=== PATIENT | male | born 1965 | race Caucasian/White ===

== ENCOUNTER 2018-09-07 17:53 | Emergency (ER) | payer OTHER ==
[2018-09-07 18:16] VITALS: BP 155/107
--- NOTE | 2018-09-07 18:53 | UC ---
Abdominal Pain Male HPI - HPI Summary HPI Summary: Patient presents to urgent care stating he's had intermittent abdominal pain for 2 years. Patient states he's been through upper endoscopy and treated for he'll doctor with improvement of symptoms. Patient states last he developed lower abdominal pain. Patient states he's had intermittent pain at times sharp since this time. Patient states he's also had intervals were he's been pain-free. Patient states Wednesday night he drank wine in the seemed to exacerbate his symptoms. Patient states Wednesday he felt bad all day long. Patient states Wednesday was better but still had some discomfort in the evening. Today he ate Charles or BBQ that seemed to make the pain increased. Patient states she's been belching a lot. Patient denies any pain when his rectum or pain with bowel movements. No blood or black stool. No pain in his penis or testicles. No dysuria. Patient denies tenesmus. Patient denies any abdominal trauma. Patient states he's been tolerating Internet he's concerned he may have diverticulitis or colon cancer. Patient has not had a colonoscopy. Patient states she's never had a CAT scan. Patient states he did not call his doctor but he didn't want to go through another night of not feeling also he came here. Patient's medications reviewed this visit. Patient does take ranitidine as well as omeprazole for his abdomen symptoms. no known food allergies. - History of Current Complaint Chief Complaint: UCAbdominalPain Stated Complaint: ABDOMINAL PAIN Time Seen by Provider: 09/07/18 18:43 Hx Obtained From: Patient, Medical Records Onset/Duration: Gradual Onset Severity Initially: Mild Severity Currently: Mild Pain Intensity: 2 Pain Scale Used: 0-10 Numeric Location: Discrete At: LUQ, Discrete At: LLQ - Allergies/Home Medications Allergies/Adverse Reactions: Allergies Allergy/AdvReac Type Severity Reaction Status Date / Time banana Allergy Unknown Verified 09/07/18 18:17 Reaction Details eggplant Allergy Unknown Uncoded 06/10/17 13:32 Reaction Details Home Medications: Home Medications Enzymes,Digestive [Enzymatic Digestant] 1 tab PO DAILY 09/07/18 [History Confirmed 09/07/18] Ranitidine TAB (NF) [Zantac TAB (NF)] 150 mg PO BID 09/07/18 [History Confirmed 09/07/18] PMH/Surg Hx/FS Hx/Imm Hx Previously Healthy: Yes - Surgical History Surgical History: Yes Surgery Procedure, Year, and Place: ORAL SURGERY - Family History Known Family History: Positive: Non-Contributory - Social History Occupation: Employed Full-time - [employer] Lives: With Family Alcohol Use: Daily Alcohol Amount: a couple of glasses with dinner Substance Use Type: None Smoking Status (MU): Never Smoked Tobacco Review of Systems All Other Systems Reviewed And Are Negative: Yes Constitutional: Positive: Negative Skin: Positive: Negative Eyes: Positive: Negative ENT: Positive: Negative Respiratory: Positive: Negative Gastrointestinal: Positive: Abdominal Pain. Negative: Vomiting, Diarrhea, Nausea Genitourinary: Positive: Negative Motor: Positive: Negative Physical Exam - Summary Physical Exam Summary: Vital Signs Reviewed: Yes A+Ox3, no distress Eyes: Conjunctiva Clear, NIKOLAS. EOM intact and full ENT: Hearing grossly normal TM x 2 clear, mmoist, uvula midline, no exudate, no erythema Neck: Positive: Supple Respiratory: Positive: No respiratory distress, No accessory muscle use + CTA throughout no w/r Cardiovascular: RRR nl s1, s2 no m/r CBT <2 sec abd soft + BS + TTP very mild LLQ no guarding, no rebound, neg rosving's Musculoskeletal Exam: PEÑA x 4 without difficulty Strength Intact, ROM Intact Neurological: Positive: Alert, + sensation throughout Psychological: Positive: Normal Response To Family Skin: Positive: no rash, no ecchymosis Vital Signs: Initial Vital Signs Temp 100.1 F 09/07/18 18:09 Pulse 69 09/07/18 18:09 Resp 16 09/07/18 18:09 BP 155/107 09/07/18 18:09 Pulse Ox 100 09/07/18 18:09 Re-Evaluation - Re-Evaluation First Eval Re-Evaluation Time: 20:04 Comment: recheck temp wnl. pt's urine neg. I had a very long discussioin with pt - pt does not want to go to the emergency department tonight. After much discussion - will draw labs at . Pt will go home - bland diet. will contact PCP in am for reassessment. I fpain worsens,,fevers, chills, blood stool or ANY Other concerns will go immediatey to the emergency department Abd Pain Male Course/Dx - Course Course Of Treatment: Patient presents with intermittent progressive abdominal pain since last . Patient states pain is like a heavy pressure and at times sharp. No changes with bowel movement. Patient with mild nausea no vomiting. Patient with a low-grade temperature here. Patient has never had a colonoscopy or CT scan to evaluate for diverticulosis. Patient is on medication for GERD. On exam patient noted to have a low-grade temp. Patient with tenderness left lower quadrant mild. Discussed with patient at length. Urinalysis is nondiagnostic. Likely recommend patient to emergency department for further evaluation and treatment tonight. Patient aware that care will be directed by the provider that sees him in the emergency department. Patient is scheduled to go out of town in approximately 10 days recommended evaluated Pt's BP elevated - recommend f/u with PCP - related to today's condition - Differential Dx/Clinical Impression Provider Diagnosis: Abdominal pain Discharge - Sign-Out/Discharge Documenting (check all that apply): Patient Departure All imaging exams completed and their final reports reviewed: No - Discharge Plan Condition: Stable Disposition: HOME Patient Education Materials: Abdominal Pain (ED) Referrals: Luca Kellogg MD [Primary Care Provider] - Additional Instructions: As discussed at [facility] visit: - you had lab tests drawn today - these results will come back tomorrow midday - your doctor will have access to the results. You will receive a call from a care team provider if there are any concerning lab studies - eat a bland diet [facility] - dry toast, scrambled eggs, broth - avoid spicy foods, acidic foods, fried foods - Contact your doctor tomorrow morning to schedule a follow-up appointment this week If you have increased pain, vomiting, fever, chills, blood in your stools go directly to the emergency department for further evaluation and treatment - Billing Disposition and Condition Condition: STABLE Disposition: Home
--- NOTE | 2018-09-08 08:23 | UC ---
Course/Dx - Diagnoses Provider Diagnoses: Abdominal pain Discharge - Sign-Out/Discharge Documenting (check all that apply): Post-Discharge Follow Up All imaging exams completed and their final reports reviewed: No Studies - Discharge Plan Condition: Stable Disposition: HOME Patient Education Materials: Abdominal Pain (ED) Referrals: Luca Kellogg MD [Primary Care Provider] - Additional Instructions: As discussed at tonight's visit: - you had lab tests drawn today - these results will come back tomorrow midday - your doctor will have access to the results. You will receive a call from a care team provider if there are any concerning lab studies - eat a bland diet [facility] - dry toast, scrambled eggs, broth - avoid spicy foods, acidic foods, fried foods - Contact your doctor tomorrow morning to schedule a follow-up appointment this week If you have increased pain, vomiting, fever, chills, blood in your stools go directly to the emergency department for further evaluation and treatment - Billing Disposition and Condition Condition: STABLE Disposition: Home
[2018-09-08 11:57] LABS: ABS Eosinophils 0.1 10^3/ul (0-0.6); ABS Monocytes 0.6 10^3/ul (0-0.8); ABS Neutrophils 3.1 10^3/ul (1.5-7.7); Eosinophil % 1.5 %; Hematocrit 42 % (42-52); Lymphocyte % 35.1 %; Mean Corpuscular HGB Conc 34 g/dL (31-36); Mean Corpuscular Hemoglobin 29 pg (27-31); Mean Corpuscular Volume 87 fL (80-94); Mean Platelet Volume 8.3 fL (7.4-10.4); Platelet Count 218 10^3/uL (150-450); Red Blood Count 4.79 10^6 /uL (4.18-5.48); Red Cell Distribution Width 15 % (10.5-15); White Blood Count 5.8 10^3/uL (3.5-10.8)
[2018-09-08 13:58] LABS: Albumin 4.5 g/dL (3.2-5.2); BUN/Creatinine Ratio 16.8 (8-20); C Reactive Protein 4.5 mg/L (<8.01); Calcium 9.4 mg/dL (8.6-10.3); EGFR African American 93.1 (>60); Globulin 2.3 g/dL (2-4); Magnesium 2.2 mg/dL (1.9-2.7); Potassium 4.1 mmol/L (3.5-5.0); Total Bilirubin 0.5 mg/dL (0.2-1.0); Total Protein 6.8 g/dL (6.4-8.9)
== END 2018-09-07 20:25 | disposition home or self-care (01) ==
LOC: UCEAST 17:53
DX: R10.32 Left lower quadrant pain (principal); R10.12 Left upper quadrant pain; R11.0 Nausea; R50.9 Fever, unspecified; K21.9 Gastro-esophageal reflux disease without esophagitis; Z91.018 Allergy to other foods
CPT/HCPCS: 36415; 80053; 81003; 83735; 85025; 86140; 99211; G0463

== ENCOUNTER 2019-01-07 14:01 | Inpatient (IN) | payer OTHER ==
[2019-01-07 14:25] LABS: ABS Lymphocytes 1.4 10^3/ul (1.0-4.8); ABS Monocytes 0.4 10^3/ul (0-0.8); ABS Neutrophils 5.4 10^3/ul (1.5-7.7); Eosinophil % 0.3 %; Hematocrit 42 % (42-52); Hemoglobin 14.2 g/dL (14.0-18.0); Lymphocyte % 19.1 %; Mean Corpuscular HGB Conc 34 g/dL (31-36); Mean Corpuscular Hemoglobin 29 pg (27-31); Mean Corpuscular Volume 86 fL (80-94); Mean Platelet Volume 6.9 fL (7.4-10.4); Platelet Count 245 10^3/uL (150-450); Red Blood Count 4.84 10^6 /uL (4.18-5.48); Red Cell Distribution Width 14 % (10-15); White Blood Count 7.2 10^3/uL (3.5-10.8)
[2019-01-07 14:31] LABS: INR 0.91 (0.82-1.09)
--- NOTE | 2019-01-07 14:37 | ED ---
HPI Chest Pain - HPI Summary HPI Summary: This patient is a 53 year old M presenting to ED with a chief complaint of intermittent chest pain since 12/26/18. Patient was in [facility], [facility], and [facility] for a month. He flew 27 hours. 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 Patient now reports difficulty cycling with CP radiating to the left arm, jaw, and neck. Patient states he only cycled 50 miles today. He said it was more challenging than usual. Patient states he has never felt anything like this before. Patient denies a history of DVT/PE. FHx of coronary thrombosis. Her grandmother from coronary thrombosis when she was 55 years old. Patient drinks alcohol, about half a bottle of wine a day. He does not smoke cigarettes. Patient denies hx of DM, HTN. Patient has not had a stress done before. The patient rates the pain 2/10 in severity. Symptoms aggravated by exercising. Symptoms alleviated by nothing. Patient states he does not want to be admitted to the hospital. Patient denies fever, SOB. - History of Current Complaint Chief Complaint: EDChestPainROMI Time Seen by Provider: 01/07/19 14:27 Hx Obtained From: Patient Onset/Duration: Started Weeks Ago - Since 12/26/18, Still Present Timing: Intermittent Initial Severity: Mild Current Severity: Mild Pain Intensity: 2 Pain Scale Used: 0-10 Numeric Chest Pain Location: Left Anterior Chest Pain Radiates: Yes Chest Pain Radiates To:: Arm - Left, Jaw, Neck Character: Exertion Aggravating Factor(s): Exertion Alleviating Factor(s): Nothing Associated Signs and Symptoms: Positive: Chest Pain. Negative: Fever - Allergy/Home Medications Allergies/Adverse Reactions: Allergies Allergy/AdvReac Type Severity Reaction Status Date / Time banana Allergy Unknown Verified 09/07/18 18:17 Reaction Details eggplant Allergy Unknown Uncoded 06/10/17 13:32 Reaction Details PMH/Surg Hx/FS Hx/Imm Hx Endocrine/Hematology History: Denies: Hx Diabetes Cardiovascular History: Denies: Hx Hypertension, Hx Pacemaker/ICD Respiratory History: Denies: Hx Asthma Sensory History: Denies: Hx Hearing Aid Psychiatric History: Denies: Hx Panic Disorder - Surgical History Surgery Procedure, Year, and Place: ORAL SURGERY Infectious Disease History: No Infectious Disease History: Reports: Traveled Outside the [place] in Last 30 Days - Family History Known Family History: Positive: Cardiac Disease - Coronary thrombosis in grandmother when she was 55 - Social History Alcohol Use: Daily Alcohol Amount: a couple of glasses with dinner Hx Substance Use: No Substance Use Type: Reports: None Hx Tobacco Use: No Smoking Status (MU): Never Smoked Tobacco Review of Systems Negative: Fever Positive: Chest Pain Negative: Shortness Of Breath All Other Systems Reviewed And Are Negative: Yes Physical Exam - Summary Physical Exam Summary: GENERAL: Patient is a well-developed and nourished M who is lying comfortable in the stretcher. Patient is not in any acute respiratory distress. HEAD AND FACE: Normocephalic EYES: PERRLA, EOMI x 2. EARS: Hearing grossly intact. MOUTH: Oropharynx within normal limits. NECK: Supple, trachea is midline, no adenopathy, no JVD, no carotid bruit. CHEST: Symmetric, no tenderness at palpation LUNGS: Clear to auscultation bilaterally. No wheezing or crackles. CVS: Regular rate and rhythm, S1 and S2 present, no murmurs or gallops appreciated. ABDOMEN: Soft, non-tender. Bowel sounds are normal. No abnormal abdominal pulsations. EXTREMITIES: Full ROM in all major joints, no edema, no cyanosis or clubbing. NEURO: Alert and oriented x 3. No acute neurological deficits. Speech is normal and follows commands. SKIN: Dry and warm Triage Information Reviewed: Yes Vital Signs On Initial Exam: Initial Vitals Temp Pulse Resp BP Pulse Ox 98.1 F 87 16 148/86 98 01/07/19 14:03 01/07/19 14:03 01/07/19 14:03 01/07/19 14:03 01/07/19 14:03 Vital Signs Reviewed: Yes Diagnostics - Vital Signs Vital Signs Temp Pulse Resp BP Pulse Ox 01/07/19 14:03 98.1 F 87 16 148/86 98 - Laboratory Lab Results: Lab Results 01/07/19 01/07/19 Range/Units 14:01 14:01 WBC 7.2 (3.5-10.8) 10^3/uL RBC 4.84 (4.18-5.48) 10^6 /uL Hgb 14.2 (14.0-18.0) g/dL Hct 42 (42-52) % MCV 86 (80-94) fL MCH 29 (27-31) pg MCHC 34 (31-36) g/dL RDW 14 (10-15) % Plt Count 245 (150-450) 10^3/uL MPV 6.9 L (7.4-10.4) fL Neut % (Auto) 73.9 % Lymph % (Auto) 19.1 % [place] % (Auto) 6.0 % Eos % (Auto) 0.3 % Baso % (Auto) 0.7 % Absolute Neuts (auto) 5.4 (1.5-7.7) 10^3/ul Absolute Lymphs (auto) 1.4 (1.0-4.8) 10^3/ul Absolute Monos (auto) 0.4 (0-0.8) 10^3/ul Absolute Eos (auto) 0.0 (0-0.6) 10^3/ul Absolute Basos (auto) 0.0 (0-0.2) 10^3/ul Absolute Nucleated RBC 0.0 10^3/ul Nucleated RBC % 0.0 INR (Anticoag Therapy) 0.91 (0.82-1.09) Result Diagrams: 01/07/19 14:01 01/07/19 14:01 Lab Statement: Any lab studies that have been ordered have been reviewed, and results considered in the medical decision making process. - Radiology CXR Radiology Interpretation Completed By: Radiologist Summary of Radiographic Findings: #. No evidence for acute intrathoracic disease. Dr. Walsh has reviewed this radiology report. - EKG 1402 Cardiac Rate: NL - 97 BPM EKG Rhythm: Sinus Rhythm Summary of EKG Findings: NSR at 97 BPM, LVH with ST-T wave changes. 1453 Cardiac Rate: NL - 89 BPM EKG Rhythm: Sinus Rhythm Summary of EKG Findings: NSR at 89 BPM, LVH. Re-Evaluation - Re-Evaluation Second Eval Re-Evaluation Time: 16:48 Comment: Discussed results with patient. Patient restates that he does not want to be admitted even though I explained the risks of acute coronary syndrome. First Eval Re-Evaluation Time: 14:58 Comment: Discussed results with patient. Third Eval Re-Evaluation Time: 17:22 Comment: Discussed increased troponin result with patient. Discussed benefits of being admitted with patient. Patient very reluctantly agreed to be admitted to [facility]. Chest Pain Course/Dx - Course Course Of Treatment: This patient is a 53 year old M presenting to ED with a chief complaint of intermittent exertional chest pain since 12/26/18. Blood work revealed MPV 6.9, glucose 130, Troponin I 0.37. CXR revealed #. No evidence for acute intrathoracic disease. Discussed patient case with Dr. Leonard, live study manager , who recommended I talk with the recyclable materials collector. At 14[address] discussed [address] case with [address] Sifuentes, interventionalist, who states that the patient can be admitted to [facility] before going to recyclable materials collector since he is free of CP in the ED. However, he stated I should treat the patient medically and that he will accept the patient emergently if the patient's symptoms worsen. Second troponin was 0.80. Upon re- eval, initially, patient refused to be admitted to [facility], however after much explanation regarding potential myocardial infarction, patient reluctantly agreed to be admitted to [facility]. After discussing patient case with Dr. Felipe, hospitalist, who accepted the patient for admission to [facility], I started the patient on heparin and aspirin. I discussed results with patient. Patient agrees to be admitted to [facility] with dx of N-STEMI. - Diagnoses Provider Diagnoses: NSTEMI (non-ST elevated myocardial infarction) - Provider Notifications Discussed Care Of Patient With: Raman Leonard Time Discussed With Above Provider: 14:48 Instructed by Provider To: Other - Discussed patient case with Dr. Leonard, live study manager, who recommended I talk with the recyclable materials collector. At [address] Sifuentes, benoitist, who states that the patient can be admitted to [facility] before going to recyclable materials collector since he is free of CP in the ED. However, he stated I should treat the patient medically and that he will accept the patient emergently if the patient's symptoms worsen. At 1732 discussed patient case with Dr. Milli Felipe, hospitalist, who accepted the patient for admission to [facility]. - Critical Care Time Critical Care Time: 30-74 min - 30 minutes Discharge ED - Sign-Out/Discharge Documenting (check all that apply): Patient Departure - Admit Patient Received Moderate/Deep Sedation with Procedure: No - Discharge Plan Condition: Fair Disposition: ADMITTED TO [facility] Referrals: Luca Kellogg MD [Primary Care Provider] - - Billing Disposition and Condition Condition: FAIR Disposition: Admitted to [facility] - Attestation Statements Document Initiated by Scribe: Yes Documenting Scribe: Rios Garcia Provider For Whom Sumi is Documenting (Include Credential): Joanna Walsh MD Scribe Attestation: IRios, scribed for Joanna Walsh MD on 01/07/19 at 1738. Scribe Documentation Reviewed: Yes Provider Attestation: The documentation as recorded by the dreibRios smallwood accurately reflects the service I personally performed and the decisions made by me, Joanna Walsh MD Status of Scribe Document: Viewed
[2019-01-07 14:38] LABS: Albumin 4.3 g/dL (3.2-5.2); Albumin/Globulin Ratio 1.7 (1-3); BUN/Creatinine Ratio 15.9 (8-20); EGFR African American 108.8 (>60); EGFR Non-African American 89.9 (>60); Globulin 2.5 g/dL (2-4); Potassium 3.8 mmol/L (3.5-5.0); Total Bilirubin 0.7 mg/dL (0.2-1.0); Total Protein 6.8 g/dL (6.4-8.9)
[2019-01-07 14:40] LABS: Troponin I 0.37 ng/mL (<0.04)
[2019-01-07 15:01] LABS: Activated Partial Thrombo Time 30.9 seconds (26.0-38.0)
[2019-01-07] MEDS ORDERED: Aspirin 81 mg CHEW TAB* 81 MG TAB.CHEW PO ONE (17:19)
[2019-01-07] MEDS ORDERED: Heparin DRIP 25,000 UNITS(*) 25,000 UNITS/500 ML BAG IV SCH (17:45)
[2019-01-07] MEDS ORDERED: Heparin VIAL(*) 5000 UNITS/ML VIAL (FIVE THOUSAND) IV SCH (18:00)
[2019-01-07] MEDS ORDERED: Acetaminophen TAB* 325 MG PO PRN (18:46)
--- NOTE | 2019-01-07 20:07 | HP ---
CC: Dr. Kellogg * [facility] MEDICINE HISTORY AND PHYSICAL: DATE OF ADMISSION: 01/07/19 PRIMARY CARE PHYSICIAN: Dr. Kellogg. ATTENDING PHYSICIAN: Dr. Milli Felipe * (dictation provided by Arianna Deal NP ). CHIEF COMPLAINT: Chest pain with activity. HISTORY OF PRESENT ILLNESS: Mr. Joseph is a 53-year-old male with past medical history of GERD and hiatal hernia who presents to the hospital today with concern for worsening chest pain with exertion. Mr. Joseph reports that he is a very active and avid cyclist. He has stated that he bikes almost every day and totaling tens of thousands of hours of bicycling time per year. He also travels extensively, visiting multiple countries per year. He just returned from [facility] on 12/27/18. On 12/28/18, he went to work. As per his routine, he rode his bicycle to work and he noted when he was going up the hill here in [place] that he was struggling a bit. He noticed some tightness in his upper left chest that radiated into his left shoulder. It stopped after he stopped the ride. He has continued to have pain every time he gets on the bicycle. He notes that it is usually when he first gets to riding, he will have pain in the left side. This seems to be associated with some sweatiness and perhaps some shortness of breath, although it is unclear as he is obviously exercising quite strenuously at that time. The pain had been pretty steady and unchanged until today when it seemed worse while he was on a 50-mile bike ride. He states it took him an extra 30 minutes to complete the ride, which is very unusual for him. He completed the ride about 11:15 and was pain-free by the time he went home. He ate lunch. He had a lot of belching. He notes that he has had a lot of belching at times when he has had chest pain, but he has also had at least a 2-year period of problems with belching, for which he has been working with Dr. Kellogg and other specialist to try to figure out an etiology, unsuccessfully. He grew concerned about this pain as he knew that something was abnormal and ultimately decided to come to the emergency room for evaluation. Here in the ED, he is chest pain free. His first troponin was 0.37. His EKG showed concern for anterior ST elevation, though very mild and only in V2, V3. This was essentially unchanged after 3 repeats in the ED. Second troponin was 0.80 and the remainder of his workup was negative. Again, the patient is chest pain free. The EKGs were reviewed and the patient's presentation was reviewed with Dr. Sifuentes, ten pin bowling centre manager, and he indicates that this was not an ST-elevation SC based on his review. PAST MEDICAL HISTORY: GERD with hiatal hernia. MEDICATIONS: Outpatient are: 1. Omeprazole 20 mg p.o. daily. 2. Ranitidine 150 mg p.o. b.i.d. 3. Enzymatic digestant 1 tab p.o. daily. ALLERGIES: To BANANAS. FAMILY HISTORY: The patient reports his mother and father are both alive and well. His dad has dementia. His mother has only osteoporosis. He is one of 9 children. His one brother in his 20s from a brain tumor. All his other siblings are alive and well. No history of heart disease. SOCIAL HISTORY: No report of alcohol, tobacco, or drug use. The patient states that he would have his colleague at work be his healthcare proxy. His name is Jose Ruiz and the email address is [email or web address]. REVIEW OF SYSTEMS: A 14-point review of systems was completed with Mr. Joseph and all those not mentioned above were negative. PHYSICAL EXAMINATION GENERAL: Mr. Joseph is sitting up in bed. He is in no acute distress. VITAL SIGNS: Temperature 98.1, pulse rate 71, respiratory rate 19, O2 saturation 98% on room air, blood pressure 154/94. LUNGS: Clear to auscultation bilaterally with no accessory muscle use and good aeration. HEART: S1, S2. No murmur, rub, or gallop and regular. ABDOMEN: Soft, nontender with bowel sounds positive x4. EXTREMITIES: No cyanosis. No edema. NEURO: He is alert. He is oriented x3. He moves all extremities equally. There is no facial asymmetry or focal weakness. Extraocular movements are intact. SKIN: Intact. DIAGNOSTIC STUDIES/LAB DATA: Data: Sodium 135, potassium 3.8, chloride 102, serum bicarbonate 27, BUN 14, creatinine 0.88, glucose 130. Troponin 0.37, followed by 0.80. WBC 7.2, hemoglobin 14.2, hematocrit 42, platelet count 245. INR 0.91, PTT 30.9, and D-dimer less than 200. Again, the EKG shows suggestion of possible anterior lead ST elevation in V2, V3. There are no reciprocal changes. Chest x-ray shows no acute process. ASSESSMENT AND PLAN: Mr. Joseph is a 53-year-old male with a past medical history of gastroesophageal reflux disease and hiatal hernia who presents with worsening angina with exertion and concern with unstable angina and now with non -ST- elevation myocardial infarction. Our plans are for inpatient admission. I expect his length of stay to be greater than 2 days for the followin. [id number] myocardial infarction. This has all been reviewed with Dr. Sifuentes and again, he does not feel this is an ST-elevation myocardial infarction. The patient will be treated medically unless he develops chest pain this evening. He will have heparin drip, metoprolol tartrate b.i.d., atorvastatin 80 mg p.o. daily, and aspirin. After the third troponin is drawn, I plan to reach out again to Dr. Leonard to review the case with him (already reviewed with ED provider) and verify whether plavix should be added to his regimen. 2. Gastroesophageal reflux disease. Plan to continue omeprazole. Ranitidine is nonformulary. 3. DVT prophylaxis with a heparin drip. 4. Code status is full code. TIME SPENT: Approximately 60 minutes were spent on the admission of this patient, more than half the time was spent with the patient at the bedside reviewing the events leading up to this hospitalization, performing the physical examination, and reviewing my plan of care. ARIANNA DEAL NP [id number]/[facility] #: [id number] REJI
[2019-01-07 20:19] LABS: Troponin I 1.18 ng/mL (<0.04)
[2019-01-07] MEDS ORDERED: Clopidogrel TAB* 300 MG PO ONE (20:35)
[2019-01-07] MEDS: Atorvastatin* 80 MG TAB PO SCH (21:03)
[2019-01-07] MEDS: Metoprolol Tartrate TAB* 25 MG PO SCH (21:03)
[2019-01-07] MEDS: Famotidine TAB* 20 MG PO SCH (23:35)
[2019-01-08 00:06] LABS: Troponin I 1.11 ng/mL (<0.04)
[2019-01-08] MEDS ORDERED: Heparin VIAL(*) 5000 UNITS/ML VIAL (FIVE THOUSAND) IV PRN (01:51)
[2019-01-08 02:38] LABS: Troponin I 1.27 ng/mL (<0.04)
[2019-01-08 06:42] LABS: ABS Eosinophils 0.1 10^3/ul (0-0.6); ABS Lymphocytes 2.3 10^3/ul (1.0-4.8); ABS Monocytes 0.5 10^3/ul (0-0.8); ABS Neutrophils 2.9 10^3/ul (1.5-7.7); Eosinophil % 1.5 %; Hematocrit 43 % (42-52); Hemoglobin 14.7 g/dL (14.0-18.0); Lymphocyte % 39.4 %; Mean Corpuscular HGB Conc 35 g/dL (31-36); Mean Corpuscular Hemoglobin 30 pg (27-31); Mean Corpuscular Volume 86 fL (80-94); Mean Platelet Volume 6.9 fL (7.4-10.4); Platelet Count 206 10^3/uL (150-450); Red Blood Count 4.96 10^6 /uL (4.18-5.48); Red Cell Distribution Width 14 % (10-15); White Blood Count 5.9 10^3/uL (3.5-10.8)
[2019-01-08 07:02] LABS: HDL Cholesterol 67.3 mg/dL
[2019-01-08] MEDS: Famotidine TAB* 20 MG PO SCH ×2 (09:37→20:07)
[2019-01-08] MEDS: Clopidogrel TAB* 75 MG PO SCH (09:37)
[2019-01-08] MEDS: Aspirin 81 mg CHEW TAB* 81 MG TAB.CHEW PO SCH (09:39)
[2019-01-08] MEDS: Metoprolol Tartrate TAB* 25 MG PO SCH (09:40)
[2019-01-08] MEDS: Pantoprazole TAB * 40 MG TAB PO SCH (09:40)
[2019-01-08 09:54] LABS: Troponin I 0.72 ng/mL (<0.04)
--- NOTE | 2019-01-08 13:24 | ECHO ---
*[facility]* [place] [address] Fax #: [phone] Transthoracic Echocardiogram Patient: Kishore Joseph : 1965 Study Date: 01/08/2019 Age: 53 Gender: M HR: 57 bpm Height: 73 in /185.4 cm BSA: 2.13 m^2 Weight: 195.6 lb /88.9 kg BMI: 25.9 kg/m^2 *Billing Services Manager: * Lucita Choudhury [facility] *Referring Physician: * Kylah Reeves *Reading Physician: * Raman Leonard MD Indications: Chest Pain, unspecified. History: Hiatal hernia. Conclusions Summary: - Left ventricle: The cavity size is normal. There is mild concentric hypertrophy. Systolic function is mildly reduced. The estimated ejection fraction is 45-50%. Hypokinesis of the distal apex and apico-septum. Doppler parameters are consistent with abnormal left ventricular relaxation (grade 1 diastolic dysfunction). - Left atrium: The atrium is mildly dilated. - Right atrium: The atrium is mildly dilated. - Functionally benign heart valves. - There is no prior echocardiogram available to compare with at this time. Study data: Transthoracic echocardiogram. Procedure: Transthoracic echocardiography was performed. Image quality was fair. Complete 2D, spectral Doppler, and color flow Doppler. Location: Bedside. Patient status: Inpatient. Patient room number: 444-1. Rhythm: Bradycardia. Findings Left ventricle: The cavity size is normal. There is mild concentric hypertrophy. Systolic function is mildly reduced. The estimated ejection fraction is 45-50%. Regional wall motion abnormalities: Hypokinesis of the distal apex and apico-septum. Doppler parameters are consistent with abnormal left ventricular relaxation (grade 1 diastolic dysfunction). Right ventricle: The cavity size is normal. Systolic function is normal. Left atrium: The atrium is mildly dilated. Right atrium: The atrium is mildly dilated. Mitral valve: The leaflets are mildly thickened. There is trace regurgitation. Aortic valve: The valve is trileaflet. The leaflets are mildly thickened. There is no evidence of stenosis. There is no significant regurgitation. Tricuspid valve: The leaflets are normal thickness. There is physiologic regurgitation. Pulmonic valve: Poorly visualized. The leaflets are normal thickness. There is no evidence of stenosis. There is trace regurgitation. Aorta: Ascending aorta: The ascending aorta is appears normal. The aortic root appears normal. The aortic arch appears normal. Pericardium: There is no significant pericardial effusion. Pulmonary arteries: Not well visualized. Systemic veins: Inferior vena cava: The vessel is normal in size. There is (>= 50%) respiratory change in the IVC dimension. Measurements Left ventricle Value Ref Aortic valve Value Ref PRABHJOT, LAX 4.8 cm 4.2 - 5.8 Tao diam, ED 2.0 cm ---- ESD, LAX 3.8 cm 2.5 - 4.0 Peak v, S 1 m/sec ---- FS, LAX (L) 22 % 25 - 43 VTI, S 21.4 cm ---- PW, ED, LAX (H) 1.3 cm 0.6 - 1.0 Mean grad, S 2.0 mm Hg ---- FS (L) 22 % 25 - 43 Peak grad, S 4.0 mm Hg ---- PW, ED (H) 1.3 cm 0.6 - 1.0 LVOT/AV, VTI ratio 0.75 ---- E', lat tao, TDI (L) 7.0 cm/sec >=10.0 E/e', lat tao, 6 Mitral valve Value Ref TDI Peak E 0.44 m/sec ---- E', med tao, TDI (L) 4.4 cm/sec >=7.0 Peak A 0.5 m/sec -- -- E/e', med tao, 10 Decel time 363 ms ---- TDI Peak E/A ratio 0.9 ---- E', avg, TDI 5.7 cm/sec E/e', avg, TDI 8 <=14 Pulmonic valve Value Re f Peak v, S 0.81 m/sec ---- LVOT Value Ref Peak grad, S 3.0 mm Hg ---- Peak eddie, S 0.96 m/sec VTI, S 16.0 cm Aortic root Value Ref Mean grad, S 2 mm Hg Root diam 3.4 cm <4.2 Ventricular septum Value Ref Ascending aorta Value Ref IVS, ED (H) 1.2 cm 0.6 - 1.0 AAo AP diam, S 3.3 cm ---- Right ventricle Value Ref Aortic arch Value Ref PRABHJOT, LAX 3.9 cm Arch diam 2.4 cm ---- Left atrium Value Ref Decending aorta Value Ref AP dim, ES 3.70 cm 3.00 - Toby peak eddie 0.68 m/sec ---- 4.00 ML dim, A4C 4.7 cm Inferior vena cava Value Ref SI dim, A4C 5.4 cm Diam 1.6 cm ---- Vol/bsa, ES, 1-p 35 ml/m^2 12 - 37 A4C Vol/bsa, ES, A/L (H) 40 ml/m^2 16 - 34 Right atrium Value Ref SI dim, ES (H) 5.7 cm 3.4 - 5.3 ML dim, ES, A4C (H) 4.6 cm 2.6 - 4.4 SI dim, ES, A4C (H) 5.7 cm 3.4 - 5.3 Estimated RAP 3 mm Hg Legend: (L) and (H) tre values outside specified reference range. Prepared and electronically signed by Raman Leonard MD 01/08/2019 13:24
--- NOTE | 2019-01-08 15:23 | CONS ---
CC: Dr. Luca Kellogg CARDIOLOGY CONSULTATION: DATE OF CONSULT: 01/08/19 REASON FOR CARDIOLOGY CONSULTATION: Patient with non-Q wave TX. HISTORY OF PRESENT ILLNESS: Mr. Joseph is a pleasant 53-year-old gentleman who 10 days ago began noticing chest pain. He is an avid cyclist and would only notice the chest pain essentially intermittently while bicycling up very steep hills. This continued intermittently until yesterday. He is very clear that he never had rest anginal symptoms until yesterday. Yesterday, he went on another his usual 50 mile bike ride during which he did have chest pain, which then abated. When he returned home and was resting, he had recurrence of his chest pain while at rest. He then proceeded to go to a [employer] and then came to the hospital. By the time he was at the [employer], his chest pain had resolved. He estimates he had a total of 1-1/2 hours plus of chest pain yesterday. He is currently pain-free. PAST MEDICAL HISTORY: GERD OUTPATIENT MEDICATIONS: 1. Omeprazole 20 mg once a day. 2. Zantac 150 mg p.o. b.i.d. ALLERGIES TO MEDICATIONS: None. He denies shrimp, seafood or dye allergy. FAMILY HISTORY: Negative for cardiac disease, his father who is 87 has a history of hypertension and possible mini strokes. His mother is 85 and alive and well. No family history of cancer nor diabetes. SOCIAL HISTORY: He does not smoke cigarettes, abuse alcohol, nor use illicit drugs. He drinks 1 to 2 glasses of wine per day, sometimes more. He is and lives alone. 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 He is an avid cyclist bicycling 50 miles per day. He recently had traveled to [facility] and did hiking there. He is originally from [place], [place] REVIEW OF SYSTEMS: The patient denies personal history of stroke cancer. Denies vomiting of blood, coughing of blood, bright red blood per rectum, bleeding stomach ulcers. He notes that he had any presumably negative EGD and colonoscopy 10 years ago and then more recently had an EGD that was also apparently negative. He denies renal calculi, cholelithiasis. He denies asthma , emphysema, pneumonia, tuberculosis, sleep apnea, home oxygen use, diabetes. He has a history of labile hypertension. Denies prior TX, congestive heart failure, cardiac surgery, cardiac murmurs, palpitations, psychiatric illnesses, lupus, psoriasis, seizures, Parkinson's disease, myasthenia gravis, thyroid disorder, liver disorders, kidney disorders, claudication symptoms, pulmonary emboli, deep venous thrombosis, peripheral arterial disease. He does have a history of heartburn, for which he is on therapy, but still persists. All other review of systems are negative x14 except as per this EHR. PHYSICAL EXAM: Height 6 feet 1, weight 196 pounds, temperature 98.6 degrees Fahrenheit, pulse 69, blood pressure is 143/87, pulse 69. General: He is pleasant gentleman in no acute distress. HEENT: Shows the cranium is normocephalic and atraumatic. He has moist mucosal membranes. Neck veins are not distended. There are no carotid bruits. Visible skin warm and perfused. Affect is appropriate. He appears oriented. No significant kyphoscoliosis on back exam. His lungs are clear to auscultation. No wheezing. No rales. Cardiac Exam: S1, S2. Regular rate. No significant murmurs, rubs or gallops. PMI is nondisplaced. Abdomen is soft, nondistended and appears benign. Extremities: Without significant edema. Pulses appear grossly intact. DIAGNOSTIC STUDIES/LAB DATA: A 12-lead EKG is reviewed from 01/08/19 at 9:23 a.m., which shows evolving anterior T-wave changes. When compared to prior EKG completed yesterday, these anterior T-wave inversions appear new. White blood cell count 5.9, hematocrit 43, platelet count 206, INR 0.91 on admission. Sodium 135, potassium 3.8, chloride 102, bicarbonate 27, BUN 14, creatinine 0.88. Troponin was 0.37 on admission, has peaked at 1.27 and it is last measured to 0.72, total cholesterol 201, LDL 122, triglycerides 60, HDL 67.3, ALT 20. IMPRESSION: Mr. Trevino is a pleasant 53-year-old gentleman with a history of labile hypertension who has noted exertional angina for the past 10 days and had some rest symptoms yesterday. He has ruled in for non-Q wave TX with Wellens sign on on EKG. Full echo pending. He is pain-free at this time. RECOMMENDATIONS: 1. Plan for cardiac catheterization in the morning. The patient is agreeable after extensive discussion.I have discussed the case with Dr. Sifuentes of [facility] Interventional service line, who has kindly agreed to perform cardiac catheterization for the patient tomorrow 2. Continue aspirin, Plavix, beta-naomi, statin and await echocardiogram for addition of JAMES inhibitor if required depending on LV function, long-term would be beneficial for endothelial stabilization. 3. Can discontinue continuous heparin infusions as troponin has peaked and pursue heparin for DVT prophylaxis subcutaneously. 4. I would recommend increasing the metoprolol further if his blood pressures were to stay elevated. 5. Other recommendations as per the hospitalist medicine service and I have discussed the case with Dr. Reeves. Dear , many thanks for this kind cardiac consultation opportunity. Please do note hesitate to contact me if questions or concerns regarding the patient's cardiovascular consultative care. We will look forward to following the patient with you. Extensive discussions have been had with the patient with multiple questions answered as well as with his healthcare proxy, Tita at the patient's request and the patient is in agreement with these recommendations. TIME SPENT: Total patient's care time greater than 65 minutes with greater 50% of the time spent in [id number] discussion with the patient and the other physicians involved in his care. [id number]/[facility] #: [id number] REJI
--- NOTE | 2019-01-08 16:27 | PN ---
Subjective Date of Service: 01/08/19 Interval History: Patient had no chest pain at rest since admission. He was anxious about further cath plan this morning. He obtained information from his student who is a [employer] unified communications engineer who told him to get cath early. Explained in detail about results and treatment plan. He is otherwise well no complain. 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 Objective Active Medications: Acetaminophen (Tylenol Tab*) 650 mg PO Q6H PRN PRN Reason: PAIN - MILD Aspirin (Aspirin 81 Mg Chew Tab*) 81 mg PO DAILY [facility] Last Admin: 01/08/19 09:39 Dose: 81 mg Atorvastatin Calcium (Lipitor*) 80 mg PO 2100 [facility] Last Admin: 01/07/19 21:03 Dose: 80 mg Clopidogrel Bisulfate (Plavix Tab*) 75 mg PO DAILY [facility] Last Admin: 01/08/19 09:37 Dose: 75 mg Enoxaparin Sodium (Lovenox(*)) 40 mg SUBCUT Q24H [facility] Famotidine (Pepcid Tab*) 20 mg PO BID [facility]; Protocol Last Admin: 01/08/19 09:37 Dose: 20 mg Metoprolol Tartrate (Lopressor Tab*) 25 mg PO BID [facility] Last Admin: 01/08/19 09:40 Dose: 25 mg Pantoprazole Sodium (Protonix Tab*) 40 mg PO DAILY [facility] Last Admin: 01/08/19 09:40 Dose: 40 mg Oxygen Devices in Use Now: None Exam: Oxygen Devices in Use Now: None Appearance: NAD Eyes: No Scleral Icterus, PERRLA Ears/Nose/Mouth/Throat: NL Teeth, Lips, Gums, Clear Oropharnyx Neck: NL Appearance and Movements; NL JVP, Trachea Midline Respiratory: Symmetrical Chest Expansion and Respiratory Effort, Cardiovascular: NL Sounds; No Murmurs; No JVD, RRR Abdominal: NL Sounds; No Tenderness; No Distention Lymphatic: No Cervical Adenopathy Extremities: - soft, non tender. Neurological: Alert and Oriented x 3 Lines/Tubes/Other Access: Clean, Dry and Intact Central Line - right chest wall HD catheter Result Diagrams: 01/08/19 05:45 01/07/19 14:01 Additional Lab and Data: Lab Results 09/07/19 09/07/19 Range/Units 14:01 14:01 WBC 7.2 (3.5-10.8) 10^3/uL RBC 4.84 (4.18-5.48) 10^6 /uL Hgb 14.2 (14.0-18.0) g/dL Hct 42 (42-52) % MCV 86 (80-94) fL MCH 29 (27-31) pg MCHC 34 (31-36) g/dL RDW 14 (10-15) % Plt Count 245 (150-450) 10^3/uL MPV 6.9 L (7.4-10.4) fL Neut % (Auto) 73.9 % Lymph % (Auto) 19.1 % [place] % (Auto) 6.0 % Eos % (Auto) 0.3 % Baso % (Auto) 0.7 % Absolute Neuts (auto) 5.4 (1.5-7.7) 10^3/ul Absolute Lymphs (auto) 1.4 (1.0-4.8) 10^3/ul Absolute Monos (auto) 0.4 (0-0.8) 10^3/ul Absolute Eos (auto) 0.0 (0-0.6) 10^3/ul Absolute Basos (auto) 0.0 (0-0.2) 10^3/ul Absolute Nucleated RBC 0.0 10^3/ul Nucleated RBC % 0.0 INR (Anticoag Therapy) 0.91 (0.82-1.09) Assess/Plan/Problems-Billing Assessment: 53 y/o male with history of GERD with hiatal hernia, presented with worsening angina with exertion, found to have non-ST elevation myocardial infarction. - Patient Problems (1) NSTEMI (non-ST elevated myocardial infarction) Current Visit: Yes Status: Acute Code(s): I21.4 - NON-ST ELEVATION (NSTEMI) MYOCARDIAL INFARCTION SNOMED Code(s): 92927229 Comment: - aspirin and plavix loading dose was given - heparin drip started since admission, stopped this afternoon as trop has peaked ([employer] unified communications engineer recommendation) - atorvastatin 80mg daily, metoprolol does increased to 50mg bid today as BP remains high side - npo midnight, plan for cath tomorrow morning - TTE, consider adding ACEI based on TTE results (2) GERD (gastroesophageal reflux disease) Current Visit: Yes Status: Acute Code(s): K21.9 - GASTRO-ESOPHAGEAL REFLUX DISEASE WITHOUT ESOPHAGITIS SNOMED Code(s): 797847459 Comment: continue pantoprazole (3) DVT prophylaxis Current Visit: Yes Status: Acute Code(s): Z29.9 - ENCOUNTER FOR PROPHYLACTIC MEASURES, UNSPECIFIED SNOMED Code(s): 918587597 Comment: mumtaz harleyxatamika Status and Disposition: Inpatient Medicine Attestation Documenting Resident: Kylah Reeves Supervising Physician: James Pascal Attending/Supervising Physician Comment: Agree with plan as outlined in note by Dr. Reeves unless indicated here. NSTEMI with planned LHC tomorrow Attestation: This service has been performed in part by a resident under the direction of a teaching physician.I, James Pascal, performed the service, or was physically present during the critical, or wooten portions of the service, furnished by the resident. I participated in the management of the patient.
[2019-01-08] MEDS ORDERED: Enoxaparin(*) 40 MG/0.4 ML SYR SUBCUT SCH (20:00)
[2019-01-08] MEDS: Metoprolol Tartrate TAB* 50 mg PO SCH (20:07)
[2019-01-08] MEDS: Atorvastatin* 80 MG TAB PO SCH (20:08)
[2019-01-09 06:47] LABS: ABS Eosinophils 0.1 10^3/ul (0-0.6); ABS Lymphocytes 1.9 10^3/ul (1.0-4.8); ABS Monocytes 0.7 10^3/ul (0-0.8); ABS Neutrophils 3.2 10^3/ul (1.5-7.7); Eosinophil % 1.6 %; Hematocrit 42 % (42-52); Hemoglobin 14.6 g/dL (14.0-18.0); Lymphocyte % 32.5 %; Mean Corpuscular HGB Conc 35 g/dL (31-36); Mean Corpuscular Hemoglobin 30 pg (27-31); Mean Corpuscular Volume 86 fL (80-94); Mean Platelet Volume 7.2 fL (7.4-10.4); Platelet Count 206 10^3/uL (150-450); Red Blood Count 4.91 10^6 /uL (4.18-5.48); Red Cell Distribution Width 14 % (10-15); White Blood Count 5.9 10^3/uL (3.5-10.8)
[2019-01-09 07:01] LABS: EGFR African American 116.4 (>60); EGFR Non-African American 96.2 (>60)
[2019-01-09] MEDS: Metoprolol Tartrate TAB* 50 mg PO SCH (07:52)
[2019-01-09] MEDS: Pantoprazole TAB * 40 MG TAB PO SCH (08:56)
[2019-01-09] MEDS: Aspirin 81 mg CHEW TAB* 81 MG TAB.CHEW PO SCH (08:56)
[2019-01-09] MEDS: Famotidine TAB* 20 MG PO SCH (08:56)
[2019-01-09] MEDS: Clopidogrel TAB* 75 MG PO SCH (08:56)
[2019-01-09] MEDS ORDERED: NS 0.9% 1000 ML** 1,000 ML IV SCH (10:00)
[2019-01-09] MEDS ORDERED: Midazolam* 1 MG/ML 5 ML VIAL (5 MG) ONE (10:43)
[2019-01-09] MEDS ORDERED: Heparin(*) 1000 UNIT/ML 10 ML VIAL CATH LAB IV ONE (10:43)
[2019-01-09] MEDS ORDERED: VERAPAMIL 2.5 MG/ML 2 ML VIAL ** 5 mg/2 ml ONE (10:43)
[2019-01-09] MEDS ORDERED: fentaNYL* 50 MCG/ML 2 ML VIAL (100 MCG VIAL) ONE (10:43)
[2019-01-09] MEDS ORDERED: Lidocaine 1% INJ* 10 MG/ML 30 ML SDV ONE (10:44)
[2019-01-09] MEDS ORDERED: nitroGLYCERIN DRIP* 25,000 MCG/250 ML BTL ONE (10:44)
[2019-01-09] MEDS ORDERED: Heparin 2 UNITS/ML IVPREMIX* 2,000 ML IV ONE (10:44)
[2019-01-09] MEDS ORDERED: Iohexol 350 (CONTRAST) 200 ML MDV IV ONE (10:44)
[2019-01-09 11:14] LABS: CRP High Sensitivity 1.41 mg/L (<2.00)
--- NOTE | 2019-01-09 12:50 | PN ---
Subjective Date of Service: 01/09/19 Interval History: HD3 on 01/09 53 M PMH of GERD with hiatal hernia, presented with worsening angina with exertion, found to have non-ST elevation myocardial infarction. Cath reveals high risk lesion needing transfer. Overnight no acute events VSS, cath report again showing high risk lesion as per report will need xfer to center with surgery on hand in case of complications Labs Stable Pt reports wanting to transfer to [facility], understanding of pay difference. Otherwise no other complaints, all questions answered by cardiology. Objective Active Medications: Acetaminophen (Tylenol Tab*) 650 mg PO Q6H PRN PRN Reason: PAIN - MILD Aspirin (Aspirin 81 Mg Chew Tab*) 81 mg PO DAILY [facility] Last Admin: 01/09/19 08:56 Dose: 81 mg Atorvastatin Calcium (Lipitor*) 80 mg PO 2100 [facility] Last Admin: 01/08/19 20:08 Dose: 80 mg Clopidogrel Bisulfate (Plavix Tab*) 75 mg PO DAILY [facility] Last Admin: 01/09/19 08:56 Dose: 75 mg Enoxaparin Sodium (Lovenox(*)) 90 mg SUBCUT Q12H [facility] Famotidine (Pepcid Tab*) 20 mg PO BID [facility]; Protocol Last Admin: 01/09/19 08:56 Dose: 20 mg Sodium Chloride (Ns 0.9% 1000 Ml) 1,000 mls @ 100 mls/hr IV .per rate [facility] Stop: 01/09/19 14:30 Last Admin: 01/09/19 10:29 Dose: 100 mls/hr Metoprolol Tartrate (Lopressor Tab*) 50 mg PO BID [facility] Last Admin: 01/09/19 07:52 Dose: Not Given Pantoprazole Sodium (Protonix Tab*) 40 mg PO DAILY [facility] Last Admin: 01/09/19 08:56 Dose: 40 mg Vital Signs - 8 hr 01/09/19 01/09/19 01/09/19 07:31 08:00 12:15 Temperature 97.9 F Pulse Rate 55 59 Respiratory 16 15 15 Rate Blood Pressure 120/82 129/84 (mmHg) O2 Sat by Pulse 99 94 Oximetry 01/09/19 12:30 Temperature Pulse Rate 55 Respiratory 19 Rate Blood Pressure 127/89 (mmHg) O2 Sat by Pulse 98 Oximetry Oxygen Devices in Use Now: None Appearance: No acute distress Eyes: PERRLA Ears/Nose/Mouth/Throat: NL Teeth, Lips, Gums, Mucous Membranes Moist Neck: NL Appearance and Movements; NL JVP Respiratory: Symmetrical Chest Expansion and Respiratory Effort, Clear to Auscultation Cardiovascular: NL Sounds; No Murmurs; No JVD, RRR Abdominal: NL Sounds; No Tenderness; No Distention Lymphatic: No Cervical Adenopathy Extremities: No Edema Skin: No Rash or Ulcers Neurological: Alert and Oriented x 3 Result Diagrams: 01/09/19 06:13 01/09/19 06:13 Additional Lab and Data: Lab Results 01/07/19 01/07/19 Range/Units 14:01 14:01 WBC 7.2 (3.5-10.8) 10^3/uL RBC 4.84 (4.18-5.48) 10^6 /uL Hgb 14.2 (14.0-18.0) g/dL Hct 42 (42-52) % MCV 86 (80-94) fL MCH 29 (27-31) pg MCHC 34 (31-36) g/dL RDW 14 (10-15) % Plt Count 245 (150-450) 10^3/uL MPV 6.9 L (7.4-10.4) fL Neut % (Auto) 73.9 % Lymph % (Auto) 19.1 % [place] % (Auto) 6.0 % Eos % (Auto) 0.3 % Baso % (Auto) 0.7 % Absolute Neuts (auto) 5.4 (1.5-7.7) 10^3/ul Absolute Lymphs (auto) 1.4 (1.0-4.8) 10^3/ul Absolute Monos (auto) 0.4 (0-0.8) 10^3/ul Absolute Eos (auto) 0.0 (0-0.6) 10^3/ul Absolute Basos (auto) 0.0 (0-0.2) 10^3/ul Absolute Nucleated RBC 0.0 10^3/ul Nucleated RBC % 0.0 INR (Anticoag Therapy) 0.91 (0.82-1.09) Assess/Plan/Problems-Billing Assessment: 53 M PMH of GERD with hiatal hernia, presented with worsening angina with exertion, found to have non-ST elevation myocardial infarction. Cath reveals high risk lesion needing transfer. - Patient Problems (1) NSTEMI (non-ST elevated myocardial infarction) Current Visit: Yes Status: Acute Code(s): I21.4 - NON-ST ELEVATION (NSTEMI) MYOCARDIAL INFARCTION SNOMED Code(s): 84126717 Comment: - aspirin and plavix loading dose was given - atorvastatin 80mg daily, metoprolol does increased to 50mg bid today as BP remains high side - Cath reveals high grade lesion to transfer to [facility] - Echo with EF 45-50%, will need repeat Echo in 3 mo, consider JAMES I (2) CAD (coronary artery disease) Current Visit: Yes Status: Acute Code(s): I25.10 - ATHSCL HEART DISEASE OF [place] CORONARY ARTERY W/O ANG PCTRS SNOMED Code(s): 95757992 Comment: - Optimized on 2/2 prevention, transfer for definitive mgmt (3) GERD (gastroesophageal reflux disease) Current Visit: Yes Status: Acute Code(s): K21.9 - GASTRO-ESOPHAGEAL REFLUX DISEASE WITHOUT ESOPHAGITIS SNOMED Code(s): 377335617 Comment: - continue pantoprazole (4) DVT prophylaxis Current Visit: Yes Status: Acute Code(s): Z29.9 - ENCOUNTER FOR PROPHYLACTIC MEASURES, UNSPECIFIED SNOMED Code(s): 078501654 Comment: - LMWH (5) Full code status Current Visit: Yes Status: Acute Code(s): Z78.9 - OTHER SPECIFIED HEALTH STATUS SNOMED Code(s): 599990065 Status and Disposition: Xfer to [facility]
[2019-01-09] MEDS ORDERED: Enoxaparin(*) 100 MG/ML SYR SUBCUT SCH ×2 (13:00→16:00)
--- NOTE | 2019-01-09 13:35 | CATH ---
CC: Dr. Kellogg; Dr. Leonard * CATH REPORT: DATE OF PROCEDURE: 01/09/19 - ROOM #444 PRIMARY CARE PHYSICIAN: Dr. Kellogg. FIBERGLASS BONDING MACHINE TENDER: Dr. Leonard. PROCEDURES: 1. Right radial artery access. 2. Bilateral selective coronary cineangiography. 3. Left heart catheterization. 4. Left ventriculography. 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 PROCEDURE ACCESS: Right radial artery sheath 6F Sl[place]. MEDICATIONS: 1. Subcu lidocaine. 2. IV Versed. 3. IV fentanyl. 4. Heparin 3000 units. 5. Verapamil 3 mg. 6. Nitroglycerin 300 mcg IA. DIAGNOSTIC CATHETERS: 5F TIG4, 5F pigtail. HEMODYNAMICS: Initial AO 92/73, post angiography LV 117/1-11, no aortic valve gradient on pullback. ANGIOGRAPHY: Left main: The left main is normal in size, relatively short, has no stenosis. LAD: The LAD is large, extends past the apex and supplies the inferoapical segment, it has a flush ostial tubular 80% stenosis, LAD has YAW 3 flow. Distally, the LAD supplies a number of [id number] diagonals. The LAD has no distal stenosis. Circumflex: The circumflex is large, not dominant, supplies a large bifurcated marginal branch, ends with a small posterolateral, the circumflex has no stenosis. RCA: The RCA is large, dominant, with a small PDA, followed by a small posterolateral, RCA has no stenosis. LV gram: There is distal anterolateral hypokinesis, LVEF visually estimated 55% , there is no mitral regurgitation. CONCLUSION: 1. Single-vessel disease of ostial LAD. 2. Preserved LVEF with mild regional wall motion abnormality. 3. Successful right radial artery access. 4. Unremarkable left-sided hemodynamics. 5. He will be transferred for somewhat high-risk PCI because of flush ostial LAD disease. [id number]/[facility] #: [id number] [facility] CENTERHerbert
--- NOTE | 2019-01-09 15:26 | TRS ---
CC: Dr. Luca Kellogg; Dr. Raman Leonard TRANSFER SUMMARY: DATE OF ADMISSION: 01/07/19 DATE OF ANTICIPATED TRANSFER: 01/09/19 PRIMARY CARE PROVIDER: Dr. Luca Kellogg. CHIEF INVESTIGATOR: Dr. Raman Leonard. DISPOSITION AT THE TIME OF TRANSFER: [facility] REASON FOR TRANSFER: The patient with high-grade ostial lesion needing cardiac care with surgery backup. MEDICATIONS AT TIME OF TRANSFER: 1. Pantoprazole 40 mg p.o. daily. 2. Metoprolol 50 mg p.o. b.i.d. 3. Famotidine 20 mg p.o. b.i.d. 4. Enoxaparin 90 mg subcutaneous q.12 hours, last dose 01/09/19. 5. Clopidogrel 75 mg p.o. daily. 6. Atorvastatin 80 mg p.o. daily. 7. Aspirin 81 mg p.o. daily, last dose 01/09/19. 8. Acetaminophen 650 mg p.o. q.6 hours p.r.n. for pain. Changes to medications include the addition of, 1. Aspirin. 2. Atorvastatin. 3. Clopidogrel. 4. Enoxaparin. 5. Metoprolol. The patient's home medications included, 1. Ranitidine 150 mg p.o. b.i.d. 2. Omeprazole 20 mg p.o. daily. 3. Enzymatic digestants as [id number]-[id number] medication 1 tab p.o. daily. PRIMARY DIAGNOSIS: Coronary artery disease with high-grade ostial lesion. SECONDARY DIAGNOSES: 1. Gastroesophageal reflux disease. 2. Peptic ulcer disease. 3. Hiatal hernia. HISTORY OF PRESENT ILLNESS AND HOSPITAL COURSE: A 53-year-old male with above past medical history, presented on 01/07/19 evening to the emergency room with chest pain on exertion. The patient reports that he is very active and actually an avid cyclist and he bikes almost daily with 10 to 20 miles per day. Towards the end of December, he was on his routine exercise route and noticed that he was having more difficult time completing this. He had some upper left chest pain that radiated to his shoulder and presumed it was musculoskeletal, although he reports that this pain has continued since late December until and ultimately he decided to come to the emergency room for evaluation. In the emergency room, he is chest pain free with his first troponin is elevated at 0.37. His EKG also showed some ST elevation in anterior leads, very mild only in V2 and V3. Second troponin was elevated at 0.8. Because of his troponin elevation and mild EKG changes, he was admitted for an NSTEMI and ACS rule out and his hospital course by problems is as follows: 1. Chest pain. This is presumed to be ACS and the patient underwent catheterization on 01/09/19 that showed high-grade ostial lesion of LAD that will need ultimately surgical backup prior to stenting and [facility] [place] unable to stent across this high-grade lesion as per Dr. Gómez Sifuentes' report which will be included in this transfer summary and he will ultimately be transferred to a higher level of care. He was started on heparin drip, metoprolol, atorvastatin, aspirin, and plavix and optimized from a secondary prevention point of view for CAD. 2. CAD. As per above, optimized for secondary prevention. Echocardiogram was done on 01/08/19 which showed ejection fraction 45% to 50% with mild systolic function reduced, hypokinesis with distal apex and grade I diastolic dysfunction. 3. Borderline reduced ejection fraction. Again, as per echocardiogram done per above, the patient has no signs of volume overload and it is most likely from myocardium stunning in the setting of ongoing CAD with high-grade ostial lesion. We will need repeat echocardiogram in 3 months, status post ultimate intervention. Again, no signs of volume overload or otherwise heart failure. 4. History of hiatal hernia and PUD. The patient is already on PPI and H2 naomi. These were continued for home medications. 5. DVT prophylaxis. The patient was therapeutically anticoagulated with heparin drip and then enoxaparin and ultimately anticoagulation can be managed by accepting team. 6. Code status is full. On day of transfer, the patient tolerated catheterization well, recovered well and ultimately elects for definitive management at outside hospital. He has no further complications or request. All treatment options and plan of care were discussed with him, he has no further questions. Physical exam was done on day of discharge and is noted on last progress note, but is unremarkable for any acute findings. LABS AND STUDIES DONE DURING THIS HOSPITALIZATION: Labs on 01/09/19 included CBC with white blood cell count 5.9, hemoglobin 14.6, hematocrit 42, platelets 206. BMP shows creatinine 0.83, BUN 16. Cholesterol is 201 with LDL of 122. Troponin on 01/08/19 was 0.72. Imaging including chest x-ray on 01/07/19 showed no acute intrathoracic process. EKG last done on 01/08/[address] elevations in V2 and V3, otherwise sinus rhythm with no acute signs of ischemia. Transthoracic echocardiogram on 01/08/19, which showed ejection fraction of 45% to 50% with grade 1 diastolic dysfunction. No valvular pathology. Cardiac catheterization was on 01/09/19 with report to follow and included in this transfer summary. ITEMS TO FOLLOWUP STATUS POST TRANSFER: 1. CAD. Ultimately, the patient will need definitive management with high- grade ostial lesion as per report discussed with and included by Cardiology and will need secondary prevention. From the CAD standpoint, he could be discharged with cardiology outpatient followup of his choice. 2. Mildly reduced ejection fraction. As per above, repeat echocardiogram could be done at survey data technician's discretion. TIME SPENT: Forty minutes were spent on the planning of this transfer with over half of that spent directly at the bedside of the patient providing direct patient care. Plan of care was discussed with the patient and his family and have no further questions, elected for transfer to definitive lesion of his high -grade CAD lesion. If there are any questions about the care of this patient during this hospitalization, please do not hesitate to reach out and contact me directly as I was involved with the direct transfer in the care of this patient , my cell phone is [phone]. Please forward to the accepting team at his hospital destination to please call directly with questions. [id number]/[facility] #: [id number] REJI
[2019-01-09 19:05] VITALS: BP 142/79
== END 2019-01-09 19:15 | disposition short-term general hospital (02) | DRG 282 ==
LOC: ED 14:01 → MEDTELE 18:43
PROVIDERS: ADMIT Hospitalist; ATTEND Internal Medicine
PROC: B211YZZ Fluoroscopy of Multiple Coronary Arteries using Other Contrast (ICD-10-PCS; 2019-01-09)
PROC: B215YZZ Fluoroscopy of Left Heart using Other Contrast (ICD-10-PCS; 2019-01-09)
PROC: 4A023N7 Measurement of Cardiac Sampling and Pressure, Left Heart, Percutaneous Approach (ICD-10-PCS; principal; 2019-01-09 08:15)
DX: I21.4 Non-ST elevation (NSTEMI) myocardial infarction (principal); I25.110 Atherosclerotic heart disease of native coronary artery with unstable angina pectoris; K44.9 Diaphragmatic hernia without obstruction or gangrene; K21.9 Gastro-esophageal reflux disease without esophagitis; K27.9 Peptic ulcer, site unspecified, unspecified as acute or chronic, without hemorrhage or perforation; Z82.49 Family history of ischemic heart disease and other diseases of the circulatory system; Z82.3 Family history of stroke; Z79.899 Other long term (current) drug therapy; Z91.018 Allergy to other foods; Z82.62 Family history of osteoporosis
CPT/HCPCS: 36415; 71045; 80053; 80061; 82565; 84484; 84520; 85025; 85379; 85610; 85730; 86141; 93005; 93306; 93458; 99156; 99157; 99284; A9270-GY; J1644; J1650; J2250; J3010